=== PATIENT | female | born 1965 | race Caucasian/White ===

== ENCOUNTER 2017-03-30 19:11 | Emergency (ER) | payer MEDICARE ==
[2017-03-30 19:14] VITALS: BP 156/81; PULSE 68; RESP 16; TEMP 98.4; O2SAT 97
[2017-03-30] MEDS ORDERED: ROBA500T PO (21:10)
[2017-03-30] MEDS ORDERED: MEDR4PAK PO (21:10)
[2017-03-30] MEDS ORDERED: DEXAMETHASONE SOD PHOS 20 MG/5 ML VIAL IM ONE (21:15)
--- NOTE | 2017-03-30 21:17 | PD ---
HPI Chief Complaint: Back/ Neck Pain or Injury Time Seen by Provider: 21:12 Travel History International Travel<30 days: No Contact w/Intl Traveler<30days: No Traveled to known affect area: No History of Present Illness HPI 51-year-old white female presents to emergency department with complaints of lower back pain. The patient has a history of chronic lower back pain and takes oxycodone, Motrin, Xanax and Lyrica. She states that she aggravated her chronic back pain this past weekend after flying back from [place] and having to repair her air conditioner. She states that the pain is been more severe than it normally has been in the past. She states it worse when she bends and moves. There is some mild relief of remaining still. She states that her oxycodone is not taking care of her pain. She has not contacted her pain doctor regarding her worsening symptoms. She denies any fever chills. No nausea vomiting. No focal numbness or tingling. No weakness. No acute bowel or bladder changes. PFSH Past Medical History Narrative Medical Chronic back pain, degenerative disc disease, anxiety Diminished Hearing: No Tetanus Vaccination: < 5 Years ?: Not Past Surgical History Surgical History: No Previous Surgery Social History Alcohol Use: Yes Tobacco Use: Yes Substance Use: No Allergies-Medications (Allergen,Severity, Reaction): Coded Allergies: Codeine (Verified Allergy, Intermediate, Nausea/Vomiting, 03/30/17) Reported Meds & Prescriptions Reported Meds & Active Scripts Active Robaxin (Methocarbamol) 500 Mg Tab 500 Mg PO QID Medrol Dosepak (Methylprednisolone) 4 Mg Dspk 4 Mg PO DIRECTED Per Pharmacist direction Review of Systems Except as stated in HPI: all other systems reviewed are Neg Physical Exam Narrative GENERAL: This is a well-nourished, well-developed patient, in no apparent distress. SKIN: No rashes, ecchymoses or lesions. Warm and dry. HEAD: Atraumatic. Normocephalic. EYES: PERRL, EOMI, no discharge or injection. No scleral icterus. EARS: Clear NOSE: Nasal turbinates appear normal. THROAT: Mucosa pink and moist. Airway patent. NECK: Trachea midline. supple, moves head freely. LUNGS: Clear to auscultation. CV: Regular in rhythm. ABDOMEN: Soft nontender. EXT: No clubbing cyanosis or edema. Back: Patient is sitting up in bed at 90. She moves off the examination table with some mild discomfort. She is able to heel and toe stand. No saddle anesthesia. She complains of lower paralumbar and bilateral SI joint tenderness. No gross spasm. No central bony tenderness. Data Data Last Documented VS Vital Signs Date Time Temp Pulse Resp B/P Pulse Ox O2 Delivery O2 Flow Rate FiO2 03/30/17 19:14 98.4 68 16 156/81 97 Room Air Orders Dexamethasone Inj (Decadron Inj) (03/30/17 21:15) MDM Medical Decision Making Medical Screen Exam Complete: Yes Emergency Medical Condition: Yes Medical Record Reviewed: Yes Differential Diagnosis MDM: High Differential diagnoses: Fracture, sprain, strain, HNP, nerve or vascular injury , epidural abscess, pilonidal cyst Narrative Course This is acute exacerbation of chronic back pain. Patient is currently in pain management with her doctor. She takes oxycodone, Motrin, Xanax and Lyrica. The patient is given Decadron 10 mg IM and prescriptions for Robaxin and Medrol Dosepak. She is advised to contact her doctor regarding further narcotic pain management. Diagnosis Primary Impression: Acute exacerbation of chronic low back pain Patient Instructions: General Instructions Additional Instructions: Rest. Ice for the next 3 days followed by heat . Continue home medications. Medrol Dosepak and Robaxin. Contact your doctor in the morning. Discuss further opiate pain control. Return to the ER for emergencies. Med/Other Pt SpecificInfo: Prescription(s) given Scripts Methocarbamol (Robaxin)500 Mg [id number] Mg PO QID #28 TAB Prov:Yeison Brody MD 03/30/17 Methylprednisolone Dosepak (Medrol Dosepak)4 Mg Dspk4 Mg PO DIRECTED #1 DSPK Ref 0 Per Pharmacist direction Prov:Yeison Brody MD 03/30/17 Disposition: 01 DISCHARGE HOME Condition: Stable Charan Marrero Mar 30, 2017 21:17
== END 2017-03-30 21:48 | disposition home or self-care (01) ==
LOC: NEPK 19:11
DX: G89.29 Other chronic pain (principal); M54.5 Low back pain; Z72.0 Tobacco use
CPT/HCPCS: 96372; 99284; J1100